=== PATIENT | female | born 1995 | race Caucasian/White ===

== ENCOUNTER 2018-07-29 14:50 | Emergency (ER) | payer MEDICAID, OTHER ==
[~2018-07-29] VITALS: Ht 152.4 cm; Wt 51.5 kg
[~2018-07-29 14:50] MED LIST: IBUP-1542 PO; PREN1TAB79 PO
[2018-07-29 15:04] VITALS: Ht 152.4 cm; Wt 51.5 kg
[2018-07-29] MEDS ORDERED: NITROFURANTOIN (SR) 100 MG CAP PO ONE (18:30)
[2018-07-29] MEDS ORDERED: NITR-58 PO (18:30)
[2018-07-29] MEDS ORDERED: PHEN-538 PO (18:30)
[2018-07-29] MEDS ORDERED: PHENAZOPYRIDINE 100 MG TAB PO ONE (18:30)
--- NOTE | 2018-07-29 18:48 | ERD ---
ER Documentation Chief Complaint Chief Complaint DYSURIA X 1 WEEK HPI 22 year-old [female] coming in today with Chief Complaint: Urinary symptoms History of Present Illness: Patient reporting urinary symptoms over the past week, progressive. Stated symptoms include frequency, dysuria, urgency. Denies any type of systemic signs of infection symptoms. Denies flank pain or abdominal pain. Denies any other associated symptoms. Review of systems: All systems were reviewed and are negative except for what is indicated in the history of present illness. Past Medical History: [Negative for hypertension, diabetes or other medical problems] Social History: Negative tobacco and alcohol use, positive marijuana use Medications: [None] Allergies: [NKDA] Social Concerns: Denies ROS All systems reviewed and are negative except as per history of present illness. Medications Home Meds Active Scripts Phenazopyridine Hcl* (Pyridium*) 200 Mg Tab, 200 MG PO TID PRN for URINARY PAIN, #5 TAB Prov:ADARSH SALINAS NP 07/29/18 Nitrofurantoin Monohyd Macrocr* (Macrobid*) 100 Mg Capsr, 100 MG PO BID for urine infection for 7 Days, #13 CAP Prov:ADARSH SALINAS V ICE SELLER 07/29/18 Ibuprofen* (Ibuprofen*) 600 Mg Tablet, 600 MG PO Q6, #20 TAB 0 Refills Prov:ISAIAH MG MD 12/31/15 Reported Medications Vit W-Ca,Fe,FA(<1 mg) ( Vitamins) 1 Each Tablet, 1 EACH PO, TAB 12/08/15 Allergies Allergies: Coded Allergies: No Known Allergy (Unverified , 07/29/18) PMhx/Soc Medical and Surgical Hx: pt denies Medical Hx, pt denies Surgical Hx Hx Substance Use: Yes (marijuana) Smoking Status: Never smoker FmHx Family History: No diabetes, No coronary disease Physical Exam Vitals Vital Signs Date Temp Pulse Resp B/P (MAP) Pulse Ox O2 O2 Flow FiO2 Time Delivery Rate 07/29/18 97.8 85 18 119/57 100 15:04 (77) Physical Exam Const: No acute distress Head: Atraumatic Eyes: Normal Conjunctiva ENT: Normal External Ears, Nose and Mouth. Neck: Full range of motion. No meningismus. Resp: Clear to auscultation bilaterally Cardio: Regular rate and rhythm, no murmurs Abd: Soft, non distended. Normal bowel sounds. Superpubic tenderness, no grimacing. Skin: No petechiae or rashes Back: No midline or flank tenderness Ext: No cyanosis, or edema Neur: Awake and alert Psych: Normal Mood and Affect Results 24 hrs Laboratory Tests Test 07/29/18 17:27 07/29/18 17:33 Urine Color YELLOW Urine Clarity SLIGHTLY CLOUDY Urine pH 5.0 Urine Specific [place] 1.023 Urine Ketones 2+ mg/dL Urine Nitrite NEGATIVE mg/dL Urine Bilirubin NEGATIVE mg/dL Urine Urobilinogen 1+ mg/dL Urine Leukocyte Esterase 3+ Kyle/ul Urine Microscopic RBC 14 /HPF Urine Microscopic WBC > 182 /HPF Urine Bacteria FEW /HPF Urine Mucus MODERATE /HPF Urine Hemoglobin 2+ mg/dL Urine Glucose NEGATIVE mg/dL Urine Total Protein NEGATIVE mg/dl POC Beta HCG, Qualitative NEGATIVE Current Medications Medications Dose Sig/Marilee Start Time Status Last (Trade) Ordered Route PRN Stop Time Admin Dose Reason Admin 100 mg ONCE ONCE 07/29/18 DC Nitrofurantoi PO 18:30 07/29/18 n 18:32 Macrocrystals (Macrobid) 200 mg ONCE ONCE 07/29/18 DC Phenazopyridi PO 18:30 07/29/18 ne HCl 18:32 (Pyridium) Procedures/MDM ED course includes a thorough examination and history. He course includes laboratory testing; urinalysis and urine . Low suspicion for genitourinary, gynecological, gastrointestinal medical emergency or life-threatening medical emergency Otherwise healthy patient presenting with constellation of symptoms likely representing uncomplicated urinary tract infection as characterized by history, physical exam findings [lab findings]. Urinalysis showing positive leukocyte esterase, positive hemoglobin, positive WBCs, positive the RBCs. Negative hCG .. Patient reassessment at 1840: Changes in patient position patient updated on lab results. Patient updated on plan of care for first dose of antibiotics and Pyridium before discharge. Urine culture ordered. Disposition given. Patient verbalizes understanding of discharge instructions. No respiratory distress, otherwise relatively well appearing and nontoxic. Patie nt educated on diagnoses, prescriptions [Pyridium and Macrobid], follow-up care, return precautions. Strict return precautions given for worsening condition; questions answered discharge. Disposition for discharge with followup in 2-3 days with PCP/clinic. Departure Diagnosis: Primary Impression: UTI (urinary tract infection) Urinary tract infection type: site unspecified Hematuria presence: with hematuria Qualified Codes: N39.0 - Urinary tract infection, site not specified; R31.9 - Hematuria, unspecified Condition: Stable Patient Instructions: Understanding Urinary Tract Infections (UTIs) Referrals: [facility] YOU HAVE RECEIVED A MEDICAL SCREENING EXAM AND THE RESULTS INDICATE THAT YOU DO NOT HAVE A CONDITION THAT REQUIRES URGENT TREATMENT IN THE EMERGENCY DEPARTMENT. FURTHER EVALUATION AND TREATMENT OF YOUR CONDITION CAN WAIT UNTIL YOU ARE SEEN IN YOUR DOCTORS OFFICE WITHIN THE NEXT 1-2 DAYS. IT IS YOUR RESPONSIBILITY TO MAKE AN APPOINTMENT FOR FOLOW-UP CARE. IF YOU HAVE A PRIMARY DOCTOR --you should call your primary doctor and schedule an appointment IF YOU DO NOT HAVE A PRIMARY DOCTOR YOU CAN CALL OUR PHYSICIAN REFERRAL HOTLINE AT IF YOU CAN NOT AFFORD TO SEE A PHYSICIAN YOU CAN CHOSE FROM THE FOLLOWING [facility] [address] [facility] [address] [facility] [facility] [address] [facility] [address] [facility] [address] [facility]. [facility] [address] [facility] YOU HAVE RECEIVED A MEDICAL SCREENING EXAM AND THE RESULTS INDICATE THAT YOU DO NOT HAVE A CONDITION THAT REQUIRES URGENT TREATMENT IN THE EMERGENCY DEPARTMENT. FURTHER EVALUATION AND TREATMENT OF YOUR CONDITION CAN WAIT UNTIL YOU ARE SEEN IN YOUR DOCTORS OFFICE WITHIN THE NEXT 1-2 DAYS. IT IS YOUR RESPONSIBILITY TO MAKE AN APPOINTMENT FOR FOLOW-UP CARE. IF YOU HAVE A PRIMARY DOCTOR --you should call your primary doctor and schedule and appointment IF YOU DO NOT HAVE A PRIMARY DOCTOR YOU CAN CALL OUR PHYSICIAN REFERRAL HOTLINE AT . IF YOU CAN NOT AFFORD TO SEE A PHYSICIAN YOU CAN CHOSE FROM THE FOLLOWING [facility] INSTITUTIONS: [facility] [address] [place] [address] [facility] [address] [place] [address] [facility] + [address] [address] Additional Instructions: Call your primary care doctor TOMORROW for an appointment during the next 1 WEEK.Tell the payroll secretary that you were referred from this facility.See the doctor sooner or return here if your condition worsens before your appointment time. See your primary care doctor/clinic in 1 week for retesting of urine to ensure urinary tract infection is no longer present. Make sure to complete entire 7 days of antibiotics even if symptoms are no longer present; it takes full treatment days for the antibiotics to completely kill the bacteria. Pyridium will make urine turn orange; only take for 2 days max. ADARSH SALINAS NP Jul 29, 2018 18:48
[2018-07-29 18:51] VITALS: BP 90/52; PULSE 82; RESP 16
== END 2018-07-29 18:52 | disposition home or self-care (01) ==
LOC: FTE 14:50
DX: N39.0 Urinary tract infection, site not specified (principal)
CPT/HCPCS: 81001; 81025; 87086; Z7502; Z7610; 99283